=== PATIENT | female | born 1965 | race Caucasian/White ===

== ENCOUNTER → 2016-12-02 | Outpatient (CLI) | payer OTHER ==
[2016-12-02 13:27] LABS: BUN/CREATININE RATIO 38 (0-10)
== END ==
LOC: LAB 11:31
PROVIDERS: Legal Medicine
DX: E11.65 Type 2 diabetes mellitus with hyperglycemia (principal); I10 Essential (primary) hypertension; E53.9 Vitamin B deficiency, unspecified; E55.9 Vitamin D deficiency, unspecified
CPT/HCPCS: 36415; 80053; 80061; 82043; 82607; 83036; 84443